=== PATIENT | male | born 2000 | race Caucasian/White ===

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

== ENCOUNTER → 2019-01-20 14:31 | Outpatient (CLI) | payer OTHER, SELFPAY | PROVIDERS: PCP Family Medicine; Visit Provider Family Medicine | DX: R07.9 Chest pain, unspecified (principal); R94.31 Abnormal electrocardiogram [ECG] [EKG] | CPT/HCPCS: 93005 ==

== ENCOUNTER 2019-12-26 17:43 | Emergency (ER) | payer OTHER, SELFPAY ==
[2019-12-26 17:54] VITALS: BP 116/77; PULSE 86; RESP 16; TEMP 36.9; O2SAT 99; BMI 25.1
--- NOTE | 2019-12-26 18:03 | XR_ITS ---
PROCEDURE: XR SOFT TISSUE NECK CLINICAL INDICATION: FEELS LIKE SOMETHING IS IN HIS THROAT COMPARISON: No exams were available for comparison FINDINGS: The epiglottis and airway has an unremarkable appearance. No prevertebral soft tissue swelling or soft tissue gas. No obvious radiopaque foreign body. CT may provide further evaluation if clinically desired IMPRESSION: Negative soft tissues neck Dictated by: Jason Booker MD 12/27/2019 07:00 Electronically signed by Jason Booker MD in [place] 12/27/2019 07:00
[2019-12-26 18:42] VITALS: BP 116/77; PULSE 86; RESP 16; TEMP 36.9; O2SAT 99; BMI 25.2
--- NOTE | 2019-12-26 19:23 | HMH.EDUTC ---
[facility] [place] Disposition Clinical Impression: Anxiety, Sore throat Disposition: Home, Self-Care Condition on Discharge: Good Instructions: DI for Anxiety -- Adult, Hydroxyzine Additional Instructions: *Warm salt water gargles may help to soothe the throat *Throat Lozenges *Warm fluids like tea with honey may help to soothe the throat *Sleep elevated *Humidifier/Vaporizer Take medication as prescribed Follow up with family doctor or Kailyn Lindsey in [facility] for further evaluation and treatment of anxiety Follow up IMMEDIATELY for new or worsening symptoms or no Noticeable improvement over the next 48-72 hours. 911 for difficulty breathing or swallowing Prescriptions: hydrOXYzine pamoate [Vistaril 25mg capsule] 25 mg PO Q8H PRN #12 cap PRN Reason: Anxiety Transmission Status: Pending to [facility] Referrals: Gato Bright MD [Primary Care Provider] - As needed Kailyn Lindsey, [employer] [Nurse Practitioner] - Time of Disposition: 19:34 Medical Decision Making - Benito Inquiry Pt receiving controlled substance: No Benito was queried for this patient: No Vital Signs: 12/26/19 17:54 12/26/19 18:42 Temperature 98.5 F 98.5 F Temperature Source Oral Oral Pulse Rate [Left] 86 86 Respiratory Rate 16 16 Blood Pressure [Right Arm] 116/77 116/77 Blood Pressure Mean [Right Arm] 90 90 02 Sat by Pulse Oximetry 99 99 Oxygen Delivery Method Room Air Room Air Orders (Tests/Meds): ORDERS Category Date Time Status XR soft tissue neck Stat Exams 12/26/19 18:03 Taken - Radiology Data #1 Image(s): Other (Soft tissue of the neck) Image Reviewed: Yes I reviewed the patient's radiology image w/the ED provider Preliminary Findings: Normal/NAD Medical Decision Narrative: Patient drinking water in room without difficulty no vomiting Reports scratchy feeling on and off for 3weeks and having anxiety [facility] [place] HPI - General Stated complaint: Feels like something stuck in throat Time Seen by Provider: 12/26/19 19:23 Mode of Arrival: Ambulatory Source of Information: Patient Limitations: No Limitations Description of Symptoms (Recalled from Triage Doc. by RN): PATIENT STATES HE SWALLOWED AN ABX PILL 2-3 WEEKS AGO AND STATES IT WENT DOWN HARD. EVER SINCE HE HAS EPISODES OF FEELING LIKE THERE IS SOMETHING IN HIS THROAT STILL. PATIENT IS IN NAD AT THIS TIME. THROAT IS CLEAR. DENIES DIFFICULTY SWALLOWING, BUT STATES IT FEELS FUNNY AT TIMES. HEENT Symptoms (Recalled from RN notes): Yes Resp Symptoms (Recalled from RN notes): No Skin Symptoms (Recalled from RN notes): No MS Symptoms (Recalled from RN notes): No Functional Status (Recalled from RN notes): WNL - History of Present Illness Provider Complaint: Patient states that he swallowed a pill about 2-3wks ago States that on and off he has been having the feeling that it was still in there States that it feels scratchy and romero States that he has anxiety and it has been worse the last couple of days because he is worried that it is still in there and may move and block his airway State that he wanted to get checked to see if it was still in there and something for his anxiety - Related Data Previous Rx's Medication Instructions Recorded amoxicillin 875 mg-potassium 1 tab PO BID 10 Days #20 tab 01/24/19 clavulanate 125 mg tablet hydrOXYzine pamoate [Vistaril 25mg 25 mg PO Q8H PRN #12 cap 12/26/19 capsule] Allergies Allergy/AdvReac Type Severity Reaction Status Date / Time No Known Allergies Allergy Verified 01/24/19 16:03 - Worker's Comp Is this a Worker's Comp case?: No [facility] History - Hepatitis A Screen Drug use history?: No High risk sexual behaviors?: No History of sexually transmitted infection?: No Currently employed?: No Childcare worker?: No Do you have indoor plumbing?: Yes Do you have electricity?: Yes Attestation statement:: This patient has been screened for Hepatitis A risk factors. I have reviewed th
[2019-12-26 19:36] VITALS: BP 116/77; PULSE 86; RESP 16; TEMP 36.9; O2SAT 99
== END 2019-12-26 19:40 | disposition home or self-care (01) ==
PROVIDERS: Emergency Provider Nurse Practitioner; PCP Family Medicine
DX: J02.9 Acute pharyngitis, unspecified (principal); F41.9 Anxiety disorder, unspecified; J45.909 Unspecified asthma, uncomplicated
CPT/HCPCS: 70360; 99201

== ENCOUNTER → 2021-03-13 19:33 | Outpatient (CLI) | payer BC, SELFPAY | PROVIDERS: Visit Provider Nurse Practitioner Family | DX: Z20.822 Contact with and (suspected) exposure to COVID-19 (principal) | CPT/HCPCS: C9803; U0003; U0005 ==

== ENCOUNTER → 2021-05-13 20:36 | Outpatient (CLI) | payer BC, SELFPAY | PROVIDERS: Visit Provider Nurse Practitioner Family | DX: Z20.822 Contact with and (suspected) exposure to COVID-19 (principal) | CPT/HCPCS: C9803; U0003; U0005 ==

== ENCOUNTER → 2021-06-03 17:38 | Outpatient (CLI) | payer BC, SELFPAY | PROVIDERS: PCP Family Medicine; Visit Provider Nurse Practitioner | DX: Z20.822 Contact with and (suspected) exposure to COVID-19 (principal) | CPT/HCPCS: C9803; U0003; U0005 ==

== ENCOUNTER → 2021-07-17 13:49 | Outpatient (CLI) | payer BC, SELFPAY | PROVIDERS: Visit Provider Nurse Practitioner | DX: U07.1 COVID-19 (principal) | CPT/HCPCS: C9803; U0003; U0005 ==

== ENCOUNTER 2021-11-12 14:17 | Emergency (ER) | payer BC, SELFPAY ==
[2021-11-12 14:35] VITALS: BP 140/85; PULSE 91; RESP 18; TEMP 36.7; O2SAT 99; BMI 23.6
--- NOTE | 2021-11-12 15:10 | HMH.EDUTC ---
[facility] [place] Disposition Clinical Impression: URI (upper respiratory infection) Qualifiers: URI type: unspecified URI Qualified Code(s): J06.9 - Acute upper respiratory infection, unspecified Disposition: Home, Self-Care Condition on Discharge: Good Instructions: Sore Throat, DI for Rash, Hydrocortisone Topical Additional Instructions: Clean area with rash with mild soap and water Take medication as prescribed *Monitor Temp, Over the counter Motrin or Tylenol as directed/as needed Tylenol every 4 hours and Motrin every 6 hours (as long as your family doctor has told you that you can take it) for fever or pain. and straight to ER if unable to lower temp less than 101.0 after medication given *Warm salt water gargles may help to soothe the throat *Throat Lozenges *Warm fluids like tea with honey may help to soothe the throat *Sleep elevated *Humidifier/Vaporizer Your throat swab was sent for culture. Those results are typically sent to your primary care. Be sure to follow up in 2-3 days with your family doctor/primary care physician if no improvement so they can review those result and treat if necessary. If you don?t have a primary care doctor, I recommend you get one but in the mean time, you will have to return to a walk in clinic Follow up IMMEDIATELY for new or worsening symptoms or no Noticeable improvement over the next 48-72 hours. 911 for difficulty breathing or swallowing Prescriptions: Hydrocortisone [Hydrocortisone 1% Cream 30gm Tube] 1 applic TP BID #28.4 gm Transmission Status: Pending to [facility] Azithromycin [Z-Chai 250mg Tab] 250 mg PO DIRECTED #6 tab Transmission Status: Pending to [facility] Referrals: Gato Bright MD [Primary Care Provider] - As needed Forms: Work/School Release Time of Disposition: 15:24 Medical Decision Making - Benito Inquiry Pt receiving controlled substance: No Benito was queried for this patient: No Vital Signs: 11/12/21 14:35 Temperature 98.0 F Temperature Source Oral Pulse Rate [Right Brachial] 91 H Respiratory Rate 18 Blood Pressure [Right Arm] 140/85 Blood Pressure Mean [Right Arm] 103 Blood Pressure Source [Right Arm] Automatic Cuff Blood Pressure Position [Right Arm] Sitting 02 Sat by Pulse Oximetry 99 Oxygen Delivery Method Room Air - Lab Data Lab results reviewed: Yes: I reviewed the patient's lab results. Lab Results 11/12/21 14:30: Group A Strep Rapid Negative Orders (Tests/Meds): ORDERS Category Date Time Status Strep Screen Confirmation Stat Micro 11/12/21 14:30 Received [facility] [place] HPI - General Stated complaint: rash, nausea, congestion, sore throat Time Seen by Provider: 11/12/21 15:10 Mode of Arrival: Ambulatory Source of Information: Patient Limitations: No Limitations Description of Symptoms (Recalled from Triage Doc. by RN): PATIENT C/O RASH TO CHEST AND SHOULDERS AND SORE THROAT SINCE THURSDAY HEENT Symptoms (Recalled from RN notes): Yes Resp Symptoms (Recalled from RN notes): No Skin Symptoms (Recalled from RN notes): Yes MS Symptoms (Recalled from RN notes): No Functional Status (Recalled from RN notes): WNL - History of Present Illness Provider Complaint: Patient states that he has had a rash on his chest and shoulder for the last several days and has had sore throat for the last couple of days States that this morning he woke up and hurt when he swallowed so he came in to get checked out - Related Data Previous Rx's Medication Instructions Recorded Azithromycin [Z-Chai 250mg Tab] 250 mg PO DIRECTED #6 tab 11/12/21 Hydrocortisone [Hydrocortisone 1% 1 applic TP BID #28.4 gm 11/12/21 Cream 30gm Tube] Allergies Allergy/AdvReac Type Severity Reaction Status Date / Time No Known Allergies Allergy Verified 03/13/21 11:57 - Worker's Comp Is this a Worker's Comp case?: No [facility] History - Hepatitis A Screen Attestation statement:: This patient has been screened for Hepati
[2021-11-12 15:11] LABS: Strep Scrn Group A (Rapid) Negative (Negative)
[2021-11-12 15:25] VITALS: BP 140/85; PULSE 91; RESP 18; TEMP 36.7; O2SAT 99
== END 2021-11-12 15:28 | disposition home or self-care (01) ==
PROVIDERS: Emergency Provider Nurse Practitioner; PCP Family Medicine
DX: J06.9 Acute upper respiratory infection, unspecified (principal)
CPT/HCPCS: 87430; 99212; G0463